=== PATIENT | male | born 1955 | race Caucasian/White ===

== ENCOUNTER 2016-08-18 04:16 | Emergency (ER) | payer BC, OTHER ==
[2016-08-18] MEDS ORDERED: OXYCODONE-ACETAMINOPHEN 5-325 MG TABLET PO ONE (08:13)
[2016-08-18] MEDS ORDERED: DIAZEPAM 5 MG TABLET PO ONE (09:03)
--- NOTE | 2016-08-18 11:28 | ER Document Report ---
ED General - General Mode of Arrival: Ambulatory Information source: Patient TRAVEL OUTSIDE OF THE [place] IN LAST 30 DAYS: No - HPI Onset: Other - chronic back pain with acute injury august 07 or Quality of pain: Achy, Pressure, Sharp Severity: Severe Pain Level: 5 Associated symptoms: Other - incontinent of stool Exacerbated by: Sitting Relieved by: Denies Similar symptoms previously: Yes Recently seen / treated by doctor: Yes - General Chief Complaint: Back Pain Stated Complaint: BACK PAIN Notes: Patient presents to the emergency department complaining of left arm and hand feel like it's on fire with needles and low back pain. Patient reports history of chronic neck pain and is scheduled for surgery on October [address] emily Lara. He reports he is used to both of his hands tingling with his left hand more numb but has increased since he fell approximately on August 07. He reports he was walking in a parking lot when he slipped landing in the splits, falling forward landing on his left forearm. Since that time his lower back pain has increased. He reports he became concerned yesterday when he was incontinent of stool. He reports it not a lot of stool but more than just passing gas.He reports he is voiding without problems. He reports he's had a normal bowel movement since that time. Denies other symptoms such as fever vomiting diarrhea. He reports he did go to the [facility] ER on August 09 and was placed on muscle relaxers. He reports x-rays were done at that time. He reports he's been taking oxycodone for the pain which is supposed to be for his neck pain. He reports he rarely has to take the pain medication but felt like he had to this time because his back was really hurting and because he was incontinent of stool. He reports pain upon standing. Patient is more comfortable standing up. (NAGA CARRILLO) - Related Data Allergies/Adverse Reactions: No Known Allergies Allergy (Unverified 08/18/16 04:57) Past Medical History - General Information source: Patient - Social History Smoking Status: Unknown if Ever Smoked Cigarette use (# per day): No Frequency of alcohol use: Occasional Drug Abuse: None Occupation: inspector [employer] Lives with: Family Family History: Reviewed & Not Pertinent Patient has suicidal ideation: No Patient has homicidal ideation: No Renal/ Medical History: Denies: Hx Peritoneal Dialysis Musculoskeltal Medical History: Reports Other - chronic neck back pain Past Surgical History: Reports: Hx Orthopedic Surgery - right elbow, right knee , right foot Review of Systems - Review of Systems Notes: Review HPI for review of systems., All other systems negative (NAGA CARRILLO) Physical Exam - Rectal Tenderness: No - good rectal tone - Genitourinary Tenderness: Nontender Scrotum: Normal - Neurological Neuro grossly intact: Yes Cognition: Normal Orientation: AAOx4 [place] Coma Scale Eye Opening: Spontaneous [place] Coma Scale Verbal: Oriented Sabina Coma Scale Motor: Obeys Commands [place] Coma Scale Total: 15 Speech: Normal Cranial nerves: Normal Cerebellar coordination: Normal Motor strength normal: LLE, RLE Additional motor exam normals: Other - Left hand weaker than right - Vital signs Vitals: Temp Pulse Resp BP Pulse Ox 98.3 F 107 H 18 132/68 H 96 08/18/16 04:52 08/18/16 04:52 08/18/16 04:52 08/18/16 04:52 08/18/16 04:52 - Notes Notes: PHYSICAL EXAMINATION: GENERAL: Looks in pain HEAD: Atraumatic, normocephalic. EYES: Pupils equal round extraocular movements intact, sclera anicteric, conjunctiva are normal. ENT: nares patent, Moist mucous membranes. NECK: Normal range of motion, without lymphadenopathy LUNGS: CTAB and equal. No wheezes rales or rhonchi. HEART: Regular rate and rhythm without murmurs ABDOMEN: Soft, no tenderness. No guarding, no rebound BACK: No obvious deformity no erythema swelling or warmth, good distal movement and sensation EXTREMITIES: Normal range of motion, no pitting edema. No cyanosis. no lower extremity weakness NEUROLOGICAL: Cranial nerves grossly intact. PSYCH: Normal mood, normal affect. SKIN: Warm, Dry, normal turgor, no rashes or lesions noted (NAGA CARRILLO) - Genitourinary Notes: no numbness/tingling (NAGA CARRILLO) Course - Diagnostic Test Radiology reviewed: Image reviewed, Reports reviewed - Diagnostic report text EXAM DESCRIPTION: MRI LUMBAR SPINE WITHOUT COMPLETED DATE/TIME: 08/18/2016 10:03 am REASON FOR STUDY: LOW Back pain, incon. stool COMPARISON: None. TECHNIQUE: Sagittal and Axial imaging includes T1, T2, STIR and gradient echo sequences. Coronal T2/HASTE imaging. LIMITATIONS: None. FINDINGS: VISUALIZED UPPER ABDOMEN: Limited evaluation. No acute or suspicious findings suggested. SEGMENTATION: No transitional anatomy. The lowest well-developed disc space is labeled L5-S1. ALIGNMENT: Anatomic. VERTEBRAE: Intact. BONE MARROW: Normal. No marrow replacement or reactive changes. DISC SIGNAL: Mild generalized loss of T2 signal. POSTERIOR ELEMENTS: Generally intact. No pars defect evident. HARDWARE: None in the spine. CORD AND CONUS: Normal in size and signal intensity. Conus at the appropriate level. SOFT TISSUES: Normal. No mass. L1-L2: No significant spinal stenosis or exit foraminal stenosis. L2-L3 : Mild generalized disc bulge without significant spinal stenosis or exit foraminal stenosis. L3-L4: Generalized disc bulge. Facet ligamentous hypertrophy. Mild narrowing of the exit foramina mild central canal stenosis. L4-L5: Generalized disc bulge. Facet ligamentous hypertrophy. Mild narrowing of the exit foramina and mild central canal stenosis. L5-S1: No significant spinal stenosis or exit foraminal stenosis. LOWER THORACIC: Significant disc is identified at T11-12 incompletely imaged. Possible cord compression. SACRUM : Visualized upper sacrum intact. OTHER: No other significant findings. TECHNICAL DOCUMENTATION: JOB ID: [id number]- All Rights Reserved MRI/MRI LUMBAR SPINE WITHOUT IMPRESSION: Mild lumbar spondylosis with mild narrowing of the exit foramina at multiple levels. Mild central canal stenosis. Significant disc is identified at T11-12 which is incompletely imaged. Possible cord compression. Recommend MRI of the thoracic spine. Diagnostic report text EXAM DESCRIPTION: MRI THORACIC SPINE WITHOUT COMPLETED DATE/TIME: 08/18/2016 10:52 am REASON FOR STUDY: 35-back pain COMPARISON: None. TECHNIQUE: Sagittal and Axial imaging includes T1, T2, STIR and gradient echo sequences. LIMITATIONS: None. FINDINGS: LOCALIZER: No worrisome findings. ALIGNMENT: Normal. VERTEBRAE: Intact. BONE MARROW: Normal. No marrow replacement or reactive changes. HARDWARE: None in the spine. CORD: Normal in size and signal intensity. SOFT TISSUES: No soft tissue masses. THORACIC DISCS T1-T12: Multilevel small disc bulges. No significant spinal stenosis or exit foraminal stenosis. No significant finding is T11-12 where there is a large left paracentral to lateral disc extrusion which flattens the leftward thecal sac and causes marked narrowing of the left exit foramina. Deviation of the cord rightward. LOWER CERVICAL: Incompletely imaged. No significant spinal stenosis or exit foraminal stenosis. UPPER LUMBAR: Incompletely imaged. No significant spinal stenosis or exit foraminal stenosis. OTHER: No other significant finding. TECHNICAL DOCUMENTATION: JOB ID: [id number]- All Rights Reserved MRI/MRI THORACIC SPINE WITHOUT IMPRESSION: Large T11-12 leftward disc extrusion which flattens the leftward thecal sac and causes marked narrowing of the left exit foramina with deviation of the cord rightward - Re-evaluation Re-evalutation: 08/18/16 11:42 MRI returned, large T11-12 leftward disc extrusion which flattens the leftward thecal sac and causes marked narrowing of the left exit formina with deviation of the cord rightward. Discussed result with patient. Consulted dr watkins who advised neuro consult. Pt is scheduled for next surgery on October [address] Stan Novoa at [facility]. Replaced By [facility] contacted for consult. 08/18/16 12:16 Dr. Novoa on the phone. Updated on patient complained updated on MRI. He reports he will contact the radiologist and try to review the films 08/18/16 13:01 Dr. novoa back on the phone reports he had discussed the MRI with the radiologist and had also reviewed the picture of the film. Since patient is not having any saddle anesthesia urinary incontinence, we believe it is safe for him to go home, fu with Dr Novoa this week. Patient was updated on plan of care. He was warned of red flags to return to the emergency department to include urinary or bowel incontinence or retention, worsening numbness/tingling. He was instructed on pain medication. He verbalized understanding to all instructions. (NAGA CARRILLO) - Vital Signs Vital signs: Temp Pulse Resp BP Pulse Ox 98.6 F 94 18 121/69 94 08/18/16 13:23 08/18/16 13:23 08/18/16 13:23 08/18/16 13:23 08/18/16 13:23 Discharge - Discharge Clinical Impression: Back pain Qualifiers: Back pain location: low back pain Chronicity: acute Back pain laterality: midline Sciatica presence: unspecified whether sciatica present Qualified Code(s ): M54.5 - Low back pain Incontinent of feces Qualifiers: Fecal incontinence type: unspecified Qualified Code(s): R15.9 - Full incontinence of feces Condition: Stable Disposition: HOME, SELF-CARE Instructions: Low Back Pain ([facility]), Oral Narcotic Medication ([facility]) Additional Instructions: *You have been evaluated for back pain *Take medication as prescribed *Rest/Ice packs *Follow up with Dr Novoa within one week for recheck, call for appointment *Return to ED for worsening condition, changes, needs Prescriptions: Oxycodone HCl/Acetaminophen [Percocet 5-325 mg Tablet] 1 - 2 tab PO ASDIR PRN # 20 tablet PRN Reason: Referrals: EVIN YAO NP [Primary Care Provider] - Follow up as needed
[2016-08-18 13:37] VITALS: BP 121/69
== END 2016-08-18 13:25 | disposition home or self-care (01) ==
LOC: ER 04:16
DX: M54.5 Low back pain (principal); R15.9 Full incontinence of feces; M54.9 Dorsalgia, unspecified; G89.29 Other chronic pain; Z79.899 Other long term (current) drug therapy
CPT/HCPCS: 72146; 72148; 99284